=== PATIENT | female | born 1965 | race African-American/Black ===

== ENCOUNTER 2022-07-19 21:44 | Emergency (ER) | payer BC ==
[2022-07-19 21:55] VITALS: TEMP 98.2; BMI 28.8
[2022-07-19] MEDS ORDERED: ACETAMINOPHEN 500 MG TABLET (FP) PO ONE (22:27)
[2022-07-19] MEDS ORDERED: ACETAMINOPHEN 325 MG TABLET (FP) ONE (23:05)
[2022-07-19 23:23] LABS: BASO % 1.3 % (0-2.0); HEMATOCRIT 34.9 % (32.4-45.2); HEMOGLOBIN 11.1 GM/dL (10.7-15.3); MCH 27.6 pg (25.7-33.7); MCHC 31.7 g/dl (32.0-36.0); MEAN PLT VOLUME 9.1 fl (7.5-11.1); MONO % 7.7 % (3.8-10.2); PLATELET COUNT 182 10^3/uL (134-434); RBC 4.01 M/mm3 (3.60-5.2); RDW 12.8 % (11.6-15.6); WHITE BLOOD COUNT 4.5 K/mm3 (4.0-10.0)
[2022-07-19 23:43] LABS: CALCIUM 8.9 mg/dL (8.5-10.1)
[2022-07-19 23:44] LABS: ALBUMIN 3.5 g/dl (3.4-5.0); BLOOD UREA NITROGEN 17.8 mg/dL (7-18)
[2022-07-19 23:47] LABS: CREATININE 0.9 mg/dL (0.55-1.3)
[2022-07-19 23:49] LABS: BILIRUBIN,TOTAL 0.4 mg/dL (0.2-1); TOT PROT 7.7 g/dl (6.4-8.2)
[2022-07-20 02:54] VITALS: BP 126/80; PULSE 79; RESP 16
== END 2022-07-20 02:55 | disposition home or self-care (01) ==
LOC: JER 21:44
DX: R07.9 Chest pain, unspecified (principal)
CPT/HCPCS: 36415; 71046-TC-FY; 71275-TC; 74174-TC; 80053; 84484; 85025; 85379; 93005; 93010; 99285-25; Q9967

== ENCOUNTER 2023-01-27 21:19 | Emergency (ER) | payer BC ==
[2023-01-27 21:25] VITALS: RESP 16; BMI 28.8
[2023-01-27] MEDS ORDERED: SODIUM CHLORIDE 1,000 ML IV STA (23:08)
[2023-01-27 23:28] LABS: BASO % 0.8 % (0-2.0); EOS % 4.2 % (0-4.5); HEMATOCRIT 29.3 % (32.4-45.2); HEMOGLOBIN 9.4 GM/dL (10.7-15.3); LYMPH % 15.2 % (8-40); MCH 27.4 pg (25.7-33.7); MEAN CELL VOLUME 85.5 fl (80-96); MEAN PLT VOLUME 8.4 fl (7.5-11.1); MONO % 8.2 % (3.8-10.2); NEUT % 71.6 % (42.8-82.8); PLATELET COUNT 208 10^3/uL (134-434); RBC 3.43 M/mm3 (3.60-5.2); WHITE BLOOD COUNT 4.9 K/mm3 (4.0-10.0)
[2023-01-27 23:42] LABS: INR 1.03 (0.83-1.09); PROTHROMBIN TIME (PATIENT) 11.9 SEC (9.7-13.0)
[2023-01-27 23:45] LABS: ACTIVATED PTT 28.2 SECONDS (25.2-36.5)
[2023-01-27 23:49] LABS: ALBUMIN 3.4 g/dl (3.4-5.0); BLOOD UREA NITROGEN 8.4 mg/dL (7-18); CALCIUM 9.2 mg/dL (8.5-10.1)
[2023-01-27 23:52] LABS: CREATININE 0.6 mg/dL (0.55-1.3)
[2023-01-27 23:54] LABS: TOT PROT 7.5 g/dl (6.4-8.2)
[2023-01-28 00:12] LABS: ERYTHROCYTE SEDIMENTATION RATE 75 mm/hr (0-30)
[2023-01-28 01:08] VITALS: TEMP 98.1
[2023-01-28 03:59] VITALS: BP 125/73; PULSE 78
== END 2023-01-28 04:00 | disposition short-term general hospital (02) ==
LOC: JER 21:19
PROC: 3E0337Z Introduction of Electrolytic and Water Balance Substance into Peripheral Vein, Percutaneous Approach (ICD-10-PCS; principal; 2023-01-27)
DX: M79.605 Pain in left leg (principal); M96.89 Other intraoperative and postprocedural complications and disorders of the musculoskeletal system
CPT/HCPCS: 36415; 80053; 83605; 85025; 85610; 85651; 85730; 86140; 86850; 86900; 86901; 87040; 93005; 93010; 93971-TC; 99285-25